=== PATIENT | male | born 1945 | race Two or more races ===

== ENCOUNTER 2021-06-19 11:19 | Outpatient (CLI) | payer OTHER | END 2021-06-19 11:25 | disposition home or self-care (01) | LOC: SONOGRAMA 11:19 | PROVIDERS: ATTEND Pathology Anatomic Pathology & Clinical Pathology | DX: E04.1 Nontoxic single thyroid nodule (principal) ==

== ENCOUNTER 2024-07-21 12:58 | Outpatient (CLI) | payer OTHER | END 2024-07-21 13:19 | disposition home or self-care (01) | LOC: MRI 12:58 | PROVIDERS: ATTEND General Practice | DX: M25.552 Pain in left hip (principal); M21.271 Flexion deformity, right ankle and toes; M25.562 Pain in left knee; G89.29 Other chronic pain | CPT/HCPCS: 73721 ==